=== PATIENT | male | born 1965 | race Caucasian/White ===

== ENCOUNTER 2016-08-20 22:21 | Inpatient (IN) ==
[2016-08-20] MEDS ORDERED: ONDANSETRON 4 MG/2 ML VIAL IV STA (23:29)
[2016-08-20 23:35] LABS: Basophils # 0.1 10*3/uL (0.0-0.2); Basophils % 0.6 % (0.0-0.8); Eosinophils # 0.1 10*3/uL (0.0-0.87); Hematocrit 46.1 VOL% (42.0-52.0); Hemoglobin 14.8 GM/DL (14.0-18.0); Immature Granulocytes % 0.4 %; Immature Granulocytes Absolute 0.04 #; Lymphocytes # 2.9 10*3/uL (1.4-4.0); Mean Corpuscular HGB Conc 32.1 GM/DL (32-36); Mean Corpuscular Hemoglobin 30 PG (27-34); Mean Corpuscular Volume 91.8 FL (87-102); Mean Platelet Volume 12.2 FL (9.6-12.0); Monocytes # 0.6 10*3/uL (0.11-0.8); Monocytes % 6.1 % (1.7-12.7); Neutrophils # 5.7 10*3/uL (1.4-7.4); Neutrophils % 60.9 % (38.7-73.9); Platelet Count 210 T/CUMM (130-400); Red Blood Count 5.02 MC/CUMM (3.8-5.5); Red Cell Distribution Width 15.5 % (9.3-17.3); White Blood Count 9.4 T/CUMM (4-12)
[2016-08-20] MEDS ORDERED: ONDANSETRON 4 MG/2 ML VIAL ONE (23:36)
--- NOTE | 2016-08-20 23:41 | Emergency Department Note ---
I, Edwina Zuniga, am scribing for, and in the presence of, April Mejia DO 23:39. IRoberto Debra, DO, personally performed the services described in this documentation, ascribed by Edwina Zuniga in my presence, and it is both accurate and complete [id number] . Arrival - Arrival Chief Complaint: Shortness of Breath Stated Complaint: SOB,WEAKNESS,VOMITING,LITTLE CHEST PAIN ED Nursing Triage Note: pt to triage c/o sob since . pt has n/v for last few days. pt gets sob upon walking, laying down Mode of Arrival: Ambulatory Limitations: No Limitations Source: Patient Time Seen by Provider: 08/20/16 23:24 - History of Present Illness HPI Narrative: Pt is a 51 y/o male who came to ED with c/o abdomen pain with N/V and SOB that onset last 3-4 weeks but worsened on , 2016. Pt has associated sxs of orthopnea, dyspnea with exertion, and most of what he eats comes back up. Pt takes Lasix once daily. PMHx of pacemaker (1-2 yrs ago), HTN , DM but no medications, CHF. Pt is under supervision of Dr. Naima Sutherland and Dr. Trimble. Onset (ago): day(s) Consistency: constant Severity: moderate Severity scale (1-10): 6 Quality: aching, fullness Allergies/Adverse Reactions: Allergies Allergy/AdvReac Type Severity Reaction Status Date / Time No Known Allergies Allergy Verified 08/20/16 22:32 Home Medications: Home Medications Medication Instructions Recorded Confirmed Type Furosemide 40 mg PO DAILY 12/12/14 08/20/16 History Potassium Chloride [Klor-Con M20] 20 meq PO DAILY 12/12/14 08/20/16 History Aspirin [Ecotrin] 81 mg PO DAILY 03/13/16 08/20/16 History Budesonide/Formoterol 160-4.5 2 puff INH BID 03/13/16 08/20/16 History [Symbicort 160-4.5] Bisoprolol [Zebeta] 5 mg PO DAILY 08/20/16 08/20/16 History Sacubitril/Valsartan [Entresto 24 1 tablet PO BID 02/25/17 02/25/17 History mg-26 mg Tablet] Review of System - Review of System 12 point system: reviewed and no additional remarkable complaints except as stated - Review of System Constitutional: Absent: chills, fever, weakness Head/Ears/Nose/Throat: Absent: nasal drainage, sore throat Respiratory: Present: respiratory distress Cardiovascular: Present: dyspnea on exertion, orthopnea. Absent: chest pain Gastrointestinal: Present: abdominal pain, nausea, vomiting Musculoskeletal: Absent: arm pain, back pain, leg pain, neck pain Skin: Absent: rash Neurological: Absent: headache Medical,Surgical,& Family Hx - Medical History Cardio: History of: Cardiac Dysrhythmia, CHF, Hypertension, Pacemaker (ICD), Cardiovascular Problems (ENLARGED HEART, ICD IMPLANT) Neurology: No history of: Seizures HEENT: History of: Eye Problem (GLASSES), Dental Problems (UPPER DENTURE) Endocrine: History of: Diabetes Mellitus (NIDDM) (DIET CONTROLLED) Rheumatology: History of;: Gout Respiratory: History of: Obstructive Sleep Apnea (CPAP) Other: History of: MRSA (ABDOMEN 8 YRS AGO) - Surgical History Cardiac Surgeries: Sugical HX of: Cardiac Catheterization (x 2), Internal Defibrillator Abdominal Surgeries: Surgical HX of: Abdominal Surgery, Hernia Repair (30+ YRS) Reproductive Surgeries: Patient denies;: Vasectomy - Family History Family History: Reports;: Family Cancer (SISTER LUNG), Family Diabetes (BROTHER) , Family Heart Disease (FATHER BROTHER), Family Hypertension (FATHER BROTHER) - Social History Smoking Status: Never smoker Frequency of Alcohol Use: Rarely Type of Drug Use: None Exam Vital Signs: Vital Signs Temperature 98.8 F 08/20/16 22:25 Pulse Rate 63 08/20/16 22:25 Respiratory Rate 20 08/21/16 00:40 Blood Pressure 126/94 08/20/16 22:25 O2 Sat by Pulse Oximetry 99 08/20/16 22:25 - General General appearance: alert, in no apparent distress, obese - Head Head exam: Present: atraumatic, normocephalic - Eye Eye exam: Present: PERRL, EOMI - ENT ENT exam: Present: mucous membranes moist. Absent: mucous membranes dry - Neck Neck exam: Present: full ROM. Absent: tenderness - Chest Chest inspection: Present: symmetric chest wall rise. Absent: tenderness - Respiratory Respiratory exam: Present: rales (mild on the right). Absent: normal lung sounds bilaterally, respiratory distress - Cardiovascular Cardiovascular exam: Present: regular rate, normal rhythm, normal heart sounds ( pacemaker noted) - Abdominal Exam Abdominal exam: Present: soft. Absent: distention (protrudent), tenderness - Extremities Exam Extremities exam: Present: full ROM. Absent: tenderness, pedal edema (non pitting) - Back Exam Back exam: Present: full ROM. Absent: tenderness - Neurological Exam Neurological exam: Present: alert, oriented X3, CN II-XII intact. Absent: motor sensory deficit - Psychiatric Psychiatric exam: Present: normal affect, normal mood - Skin Skin exam: Present: warm, dry Course Course Narrative: spoke with Dr Gardiner who will admit pt. Results - Labs CBC & BMP: 08/20/16 23:19 08/20/16 23:19 Lab Results: I have reviewed the patients labs Labs: Laboratory Tests 08/20/16 23:19 MPV 12.2 H Laboratory Tests 08/20/16 08/20/16 23:19 23:19 MPV 12.2 H B-Natriuretic Peptide 1600 H - EKG EKG results: interpreted by ROSALINED, not changed from: (prior ) EKG shows: sinus rhythm - Diagnostic Findings Procedure: Chest x-ray: image reviewed by me (mild failure) Disposition Clinical Impression: Congestive heart failure Case discussed with: patient Disposition: Still a Patient Condition: Stable Instructions: Heart Failure (ED), Chest Pain (ED) Time of Disposition: 01:04
[2016-08-20 23:42] LABS: INR 1.4; PT Patient Result 15.2 SECS; Partial Thromboplastin Time 27.1 SECS (0-40)
[2016-08-21 00:10] LABS: Alanine Aminotransferase 38 U/L (16-61); Albumin 3.9 G/DL (3.4-5.0); Alkaline Phosphatase 62 U/L (45-117); Aspartate Amino Transferase 37 U/L (0-37); Blood Urea Nitrogen 18 MG/DL (7-18); Calcium 9.5 MG/DL (8.5-10.1); Glucose 104 MG/DL (74-106); Potassium 4.3 MMOL/L (3.5-5.1); Sodium 143 MMOL/L (136-145); Total Protein 7.1 G/DL (6.4-8.3)
[2016-08-21 00:11] LABS: Troponin I Only 0.025 NG/ML (0.00-0.045)
[2016-08-21] MEDS ORDERED: FUROSEMIDE 40 MG/4 ML VIAL IV STA (00:57)
[2016-08-21] MEDS ORDERED: MAGNESIUM SULF RIDER 4 GM in PREMIX 1 EACH IV PRN (01:05)
[2016-08-21] MEDS ORDERED: MORPHINE 2 MG/1 ML SYRINGE IV PRN (01:05)
[2016-08-21] MEDS ORDERED: MAGNESIUM SULF RIDER 2 GM in PREMIX 1 EACH IV PRN (01:05)
[2016-08-21] MEDS ORDERED: ONDANSETRON 4 MG/2 ML VIAL IV PRN (01:05)
[2016-08-21] MEDS ORDERED: ZALEPLON 5 MG CAPSULE PO PRN (01:05)
[2016-08-21] MEDS ORDERED: FUROSEMIDE 100 MG/10 ML VIAL ONE (01:09)
[2016-08-21 04:59] LABS: Basophils # 0.1 10*3/uL (0.0-0.2); Basophils % 0.7 % (0.0-0.8); Eosinophils % 0.4 % (0.00-10.9); Hematocrit 41.9 VOL% (42.0-52.0); Hemoglobin 13.8 GM/DL (14.0-18.0); Immature Granulocytes % 0.3 %; Immature Granulocytes Absolute 0.02 #; Lymphocytes # 2.4 10*3/uL (1.4-4.0); Lymphocytes % 31.6 % (21.2-54.2); Mean Corpuscular HGB Conc 32.9 GM/DL (32-36); Mean Corpuscular Hemoglobin 29 PG (27-34); Mean Corpuscular Volume 88.8 FL (87-102); Mean Platelet Volume 11.9 FL (9.6-12.0); Monocytes # 0.6 10*3/uL (0.11-0.8); Monocytes % 7.3 % (1.7-12.7); Neutrophils # 4.5 10*3/uL (1.4-7.4); Neutrophils % 59.7 % (38.7-73.9); Platelet Count 196 T/CUMM (130-400); Red Blood Count 4.72 MC/CUMM (3.8-5.5); Red Cell Distribution Width 15.2 % (9.3-17.3); White Blood Count 7.6 T/CUMM (4-12)
[2016-08-21 05:42] LABS: Troponin I Only 0.023 NG/ML (0.00-0.045)
[2016-08-21 05:59] LABS: Calcium 8.7 MG/DL (8.5-10.1); Magnesium 1.8 MG/DL (1.8-2.4); Osmolality,Calculated 288.7 MOS/KG (273-304); Risk Ratio 5.2; Thyroid Stimulating Hormone 0.384 uIU/ml (0.358-3.74); VLDL CHOLESTEROL 17.2 MG/DL
[2016-08-21] MEDS ORDERED: DEXTROSE 50% 25 GM/50 ML VIAL IV PRN (07:26)
[2016-08-21] MEDS ORDERED: GLUCAGON 1 MG VIAL IM PRN (07:26)
--- NOTE | 2016-08-21 07:54 | EKG Report ---
Stationary ECG Study [facility] Test Date: 08/21/2016 7:52:50 AM Pat Name: ALF PALOMINO Department: Room: 281 Gender: M Pneumatic Tester: : 1965 Requested by: April Mejia Order Number: [id number] Reading MD: CARLOS OSBORN Intervals [place] Rate: 52 P: 999 MO: 0 QRS: -52 QRSD: 116 T: 87 QT: 453 QTc: 434 Interpretive Statements SINUS RHYTHM WITH FIRST DEGREE AV BLOCK LOW QRS VOLTAGE IN PRECORDIAL LEADS LEFT ANTERIOR FASCICULAR BLOCK INFERIOR MYOCARDIAL INFARCTION, PROBABLY OLD MULTIFOCAL PVCs with fusion Electronically Signed On 08-21-16 21:57:00 COLLABORATIVE TEACHER by CARLOS OSBORN [email or web address]
[2016-08-21 08:01] LABS: Troponin I Only 0.028 NG/ML (0.00-0.045)
--- NOTE | 2016-08-21 08:30 | XRay Report ---
Referring Physician: April Mejia DO Exam: XR chest 1V portable Date: August 20, 2016 at 11:19 PM Reason: Shortness of breath Comparison: Chest 2 views July 29, 2016 Findings: The cardiac silhouette is again enlarged, and a cardiac pacing device is in place. No focal consolidation, pneumothorax or pleural effusion is identified. No acute osseous process is seen. Impression: 1. Cardiomegaly. 2. No acute pulmonary process is identified. PROCEDURE INTERPRETED AT [facility] DEPARTMENT OF RADIOLOGY Final Report Signed by: Dr. Ceci Alexander
--- NOTE | 2016-08-21 10:43 | Cardiology History & Physical ---
Assessment and Plan (1) NICM (nonischemic cardiomyopathy) Status: Acute Assessment and plan: 51-year-old male, nonischemic cardiomyopathy, CHF class 3, diet-controlled diabetes, sleep apnea, morbid obesity, frequent PVCs, h/o VT. Presenting with symptoms suggestive of worsening gastroparesis. His heart failure symptoms are also slowly worsening. He is adequately perfused at this time. -Continue IV Lasix 80 mg twice a day. Fair UOP so far. If difficult diurese, may support with dobutamine. We will need to watch closely for arrhythmia. -He is not a candidate for CATTLE AND WHEAT FARMER. Although has frequent PVCs, these are polymorphic and would not be a good candidate substrate for ablation. There is no significant bradycardia. He will need evaluation for advanced CHF treatment options. -GI consult. His primary concern is related to his nausea vomiting, suspect gastroparesis. -Sleep evaluation. He has TONO. He may need titration or may be better served by the BiPAP, given his severe cardiac dysfunction. -Continue Entresto, Zebeta. -Check HBA1c. His BS is normal off any DM agents -Keep on telemetry Current Visit: Yes (2) Gastroparesis Status: Acute Current Visit: Yes (3) T2DM (type 2 diabetes mellitus) Status: Acute Current Visit: Yes (4) Congestive heart failure Status: Acute Current Visit: Yes History of Present Illness Chief complaint: BRYAN, abd pain History of present illness: Mr. Richard is a 51 year old male, followed by dr. Trimble. He has a history of nonischemic cardiomyopathy, ejection fraction declining, now 15%, despite being on Entresto and BB. He has a single-chamber ICD for primary prevention. Interrogation from office shows frequent PVCs, NSVTs, and prior VTs, for which treatment details are not availabl;e in the EMR. Less than 1% RVP. He noticed slowly worsening heart failure symptoms, currently, he is around class III. He also has diabetes mellitus, diet-controlled. History of suspected gastroparesis, with GI workup planned. Recently, he noticed that his symptoms became worse, has N/V. Denies any diarrhea or constipation palpitation chest pain. He gets short of breath with minimal activity but was not having severe orthopne so far. EKG shows sinus rhythm, with frequent multifocal PVCs. The QRS is 120 ms, IVCD. BNP was elevated, LFTs are within normal range. He got 80 mg iv Lasix in the ER, with fair urine output so far. His is currently feeling around his baseline. Home Medications Medication Instructions Recorded Confirmed Type Furosemide 40 mg PO DAILY 12/12/14 08/21/16 History Potassium Chloride [Klor-Con M20] 20 meq PO DAILY 12/12/14 08/21/16 History Aspirin [Ecotrin] 81 mg PO DAILY 03/13/16 08/21/16 History Budesonide/Formoterol 160-4.5 2 puff INH BID 03/13/16 08/21/16 History [Symbicort 160-4.5] Bisoprolol [Zebeta] 5 mg PO DAILY 08/20/16 08/21/16 History Sacubitril/Valsartan [Entresto 24 1 tablet PO BID 08/20/16 08/21/16 History mg-26 mg Tablet] Allergies Allergy/AdvReac Type Severity Reaction Status Date / Time No Known Allergies Allergy Verified 08/20/16 22:32 12 point system: reviewed and no additional remarkable complaints except as stated Medical,Surgical,& Family Hx - Medical History Cardio: History of: Cardiac Dysrhythmia, CHF, Hypertension, Pacemaker (ICD), Cardiovascular Problems (ENLARGED HEART, ICD IMPLANT) Neurology: No history of: Seizures HEENT: History of: Eye Problem (GLASSES), Dental Problems (UPPER DENTURE) Endocrine: History of: Diabetes Mellitus (NIDDM) (DIET CONTROLLED) Rheumatology: History of;: Gout Respiratory: History of: Obstructive Sleep Apnea (CPAP) Other: History of: MRSA (ABDOMEN 8 YRS AGO) - Surgical History Cardiac Surgeries: Sugical HX of: Cardiac Catheterization (x 2), Internal Defibrillator Abdominal Surgeries: Surgical HX of: Abdominal Surgery, Hernia Repair (30+ YRS) Reproductive Surgeries: Patient denies;: Vasectomy - Family History Family History: Reports;: Family Cancer (SISTER LUNG), Family Diabetes (BROTHER) , Family Heart Disease (FATHER BROTHER), Family Hypertension (FATHER BROTHER) - Social History Smoking Status: Never smoker Frequency of Alcohol Use: Rarely Type of Drug Use: None Cardiology Physical Exam - Constitutional Vitals: Vital Signs Temp Pulse Resp BP Pulse Ox 96.7 F L 64 18 100/63 98 08/21/16 08:00 08/21/16 08:00 08/21/16 08:00 08/21/16 08:00 08/21/16 08:00 Intake and Output 08/20/16 08/21/16 08/21/16 23:59 07:59 15:59 Intake Total 120 / 120 Output Total 600 / 600 Balance -600 / -600 120 / 120 Intake: Oral 120 / 120 Output: Urine 600 / 600 Other: Weight 128.849 kg Patient Weight 08/21/16 23:59 Weight 128.849 kg General appearance: morbidly obese - Head Head exam: Present: normal inspection - Eye Eye exam: Absent: conjunctival injection Pupils: Absent: dilated - ENT ENT exam: Present: normal exam - Neck Neck exam: Present: normal inspection - Respiratory Respiratory exam: Present: clear to auscultation bilaterally - Cardiovascular Cardiovascular exam: Present: regular rate and rhythm - GI/Abdominal GI/Abdominal exam: Present: normal bowel sounds. Absent: distended, firm - Extremities Exam Extremities exam: Present: normal inspection, normal capillary refill, edema (1+ ) - Back Exam Back exam: Present: normal inspection - Neurological Exam Neurological exam: Present: alert, oriented X3 - Psychiatric Psychiatric exam: Present: normal affect - Skin Skin exam: Present: normal color, warm. Absent: cyanosis Result/EKG - Labs CBC & BMP: 08/21/16 04:49 08/21/16 04:49 Lab Results: I have reviewed the past 24 hour labs Labs: Laboratory Results - last 24 hr 08/21/16 08/21/16 08/21/16 04:49 04:49 04:49 WBC 7.6 RBC 4.72 Hgb 13.8 L Hct 41.9 L MCV 88.8 MCH 29 MCHC 32.9 RDW 15.2 Plt Count 196 MPV 11.9 Neut % (Auto) 59.7 Lymph % (Auto) 31.6 [place] % (Auto) 7.3 Eos % (Auto) 0.4 Baso % (Auto) 0.7 Neut # (Auto) 4.5 Lymph # (Auto) 2.4 [place] # (Auto) 0.6 Eos # (Auto) 0.0 Baso # (Auto) 0.1 Immature Gran % 0.3 Nucleated RBC % 0.0 Immature Gran # 0.02 Nucleated RBCs # 0.00 Sodium 145 Potassium 4.0 Chloride 108 H Carbon Dioxide 22 Anion Gap 19.0 H BUN 16 Creatinine 1.00 GFR Calculation 122 BUN/Creatinine Ratio 16.00 Glucose 106 POC Glucose Calculated Osmolality 288.7 Calcium 8.7 Magnesium 1.8 Total Creatine Kinase 113 CK-MB (CK-2) < 1.0 Troponin I 0.023 Triglycerides 86 Cholesterol 156 LDL Cholesterol 119.0 VLDL Cholesterol 17.2 HDL Cholesterol 30 L Heart Disease Risk Ratio 5.20 TSH 3rd Generation 0.384 08/21/16 08/21/16 07:04 07:59 WBC RBC Hgb Hct MCV MCH MCHC RDW Plt Count MPV Neut % (Auto) Lymph % (Auto) [place] % (Auto) Eos % (Auto) Baso % (Auto) Neut # (Auto) Lymph # (Auto) [place] # (Auto) Eos # (Auto) Baso # (Auto) Immature Gran % Nucleated RBC % Immature Gran # Nucleated RBCs # Sodium Potassium Chloride Carbon Dioxide Anion Gap BUN Creatinine GFR Calculation BUN/Creatinine Ratio Glucose POC Glucose 123 H Calculated Osmolality Calcium Magnesium Total Creatine Kinase 95 CK-MB (CK-2) < 1.0 Troponin I 0.028 Triglycerides Cholesterol LDL Cholesterol VLDL Cholesterol HDL Cholesterol Heart Disease Risk Ratio TSH 3rd Generation - EKG EKG results: interpreted by me
[2016-08-21] MEDS: POTASSIUM CHLORIDE 20 MEQ TABLET PO SCH (11:49)
[2016-08-21] MEDS: ASPIRIN EC 81 MG TABLET PO SCH (11:49)
[2016-08-21] MEDS: SACUBITRIL/VALSARTAN 49-51 MG TABLET PO SCH ×2 (11:49→21:06)
[2016-08-21] MEDS: BUDESONIDE/FORMOTEROL 160-4.5 INHALER 6 GM INH SCH ×2 (11:50→21:09)
[2016-08-21] MEDS: BISOPROLOL 5 MG TABLET PO SCH (11:50)
[2016-08-21] MEDS: FUROSEMIDE 40 MG/4 ML VIAL IV SCH (16:20)
--- NOTE | 2016-08-21 17:25 | EKG Report ---
Stationary ECG Study [facility] Test Date: 08/20/2016 10:32:16 PM Pat Name: ALF PALOMINO Department: Room: 281 Gender: M Morphologist: : 1965 Requested by: April Mejia Order Number: [id number] Reading MD: CARLOS OSBORN Intervals [place] Rate: 72 P: 48 MA: 240 QRS: -60 QRSD: 108 T: 92 QT: 435 QTc: 459 Interpretive Statements SINUS RHYTHM WITH FIRST DEGREE AV BLOCK WITH FREQUENT VENTRICULAR PREMATURE COMPLEXES Right bundle branch block Left anterior fascicular block INFERIOR INFARCT, PROBABLY OLD Electronically Signed On 08-21-16 21:50:33 MANUFACTURING ENGINEERING PROFESSOR by CARLOS OSBORN [id number]
[2016-08-22 06:12] LABS: Basophils # 0.1 10*3/uL (0.0-0.2); Basophils % 0.8 % (0.0-0.8); Eosinophils # 0.1 10*3/uL (0.0-0.87); Eosinophils % 1.2 % (0.00-10.9); Hematocrit 44.7 VOL% (42.0-52.0); Hemoglobin 14.4 GM/DL (14.0-18.0); Immature Granulocytes % 0.3 %; Immature Granulocytes Absolute 0.03 #; Lymphocytes % 33.6 % (21.2-54.2); Mean Corpuscular HGB Conc 32.2 GM/DL (32-36); Mean Corpuscular Hemoglobin 29 PG (27-34); Mean Corpuscular Volume 90.7 FL (87-102); Mean Platelet Volume 13.1 FL (9.6-12.0); Monocytes # 0.9 10*3/uL (0.11-0.8); Monocytes % 9.6 % (1.7-12.7); NRBC # 0.03 10*3/uL; Neutrophils # 4.8 10*3/uL (1.4-7.4); Neutrophils % 54.5 % (38.7-73.9); Platelet Count 116 T/CUMM (130-400); Red Blood Count 4.93 MC/CUMM (3.8-5.5); Red Cell Distribution Width 15.5 % (9.3-17.3); White Blood Count 8.9 T/CUMM (4-12)
[2016-08-22 06:49] LABS: Calcium 9.1 MG/DL (8.5-10.1); Osmolality,Calculated 290.7 MOS/KG (273-304); Potassium 4.2 MMOL/L (3.5-5.1)
[2016-08-22] MEDS: BUDESONIDE/FORMOTEROL 160-4.5 INHALER 6 GM INH SCH ×2 (09:18→20:55)
[2016-08-22] MEDS: ASPIRIN EC 81 MG TABLET PO SCH (09:19)
[2016-08-22] MEDS: POTASSIUM CHLORIDE 20 MEQ TABLET PO SCH (09:19)
[2016-08-22] MEDS: SACUBITRIL/VALSARTAN 49-51 MG TABLET PO SCH ×2 (09:20→20:54)
[2016-08-22] MEDS: FUROSEMIDE 40 MG/4 ML VIAL IV SCH ×2 (09:20→16:43)
[2016-08-22] MEDS: BISOPROLOL 5 MG TABLET PO SCH (09:20)
--- NOTE | 2016-08-22 10:14 | Gastrointestinal Consult Note ---
<Harini Joyce - Last Filed: 08/22/16 10:06> Assessment and Plan (1) Nausea and vomiting Status: Acute Assessment and plan: 08/22-2-3 week history of nausea, vomiting with eating. No coffee ground/ hematemesis. Mid abd pain with eating, resolved with vomiting. Diet controlled DM. No prior endoscopy. Plan and addendum to follow by Dr Madrid. Current Visit: Yes History of Present Illness Chief complaint: Nausea and vomiting History of present illness: Mr. Richard is a 51 year old male who presented to the hospital with complaints of abdominal pain, nausea and vomiting. Pt also presented with some SOB. He has a history of nonischemic cardiomyopathy with EF of 15% on Entresto and betablockers. He has an implanted ICD as well. He states he has had some new onset chest pressure, discomfort as well. Pt states that the last 2-3 weeks he has had nausea and vomiting almost every day several times a day every time he eats. He states it started suddenly and has been unable to keep any solids down since this time. When he eats, he has onset of nausea and starts vomiting with some onset of mid abdominal cramping and pain. Pt states that he is able to keep down small amounts of liquids but no solids. He is what he states is borderline diabetic and his blood sugars are [place] Vianney Sutherland [place] [facility] He is on no medications for this and states they average 100-120 fasting. He has no prior history of PUD, GERD, or GI problems in the past. No endoscopy in the past. He states that he has no dysphagia. No weight loss, fever or chills. Denies being around others who have been ill. States his bowels have changed in the respect of he is having less stool with each bowel movement. Denies any melena or hematochezia. Denies NSAID use. He had a recent outpatient gallbladder US on 07/29 that showed possible fatty liver infiltration but no other abnormality. CBD 2.3cm. Home Medications Medication Instructions Recorded Confirmed Type Furosemide 40 mg PO DAILY 12/12/14 08/21/16 History Potassium Chloride [Klor-Con M20] 20 meq PO DAILY 12/12/14 08/21/16 History Aspirin [Ecotrin] 81 mg PO DAILY 03/13/16 08/21/16 History Budesonide/Formoterol 160-4.5 2 puff INH BID 03/13/16 08/21/16 History [Symbicort 160-4.5] Bisoprolol [Zebeta] 5 mg PO DAILY 08/20/16 08/21/16 History Sacubitril/Valsartan [Entresto 24 1 tablet PO BID 08/20/16 08/21/16 History mg-26 mg Tablet] Allergies Allergy/AdvReac Type Severity Reaction Status Date / Time No Known Allergies Allergy Verified 08/20/16 22:32 Medical,Surgical,& Family Hx - Medical History Cardio: History of: Cardiac Dysrhythmia, CHF, Hypertension, Pacemaker (ICD), Cardiovascular Problems (ENLARGED HEART, ICD IMPLANT) Neurology: No history of: Seizures HEENT: History of: Eye Problem (GLASSES), Dental Problems (UPPER DENTURE) Endocrine: History of: Diabetes Mellitus (NIDDM) (DIET CONTROLLED) Rheumatology: History of;: Gout Respiratory: History of: Obstructive Sleep Apnea (CPAP) Other: History of: MRSA (ABDOMEN 8 YRS AGO) - Surgical History Cardiac Surgeries: Sugical HX of: Cardiac Catheterization (x 2), Internal Defibrillator Abdominal Surgeries: Surgical HX of: Abdominal Surgery, Hernia Repair (30+ YRS) Reproductive Surgeries: Patient denies;: Vasectomy - Family History Family History: Reports;: Family Cancer (SISTER LUNG), Family Diabetes (BROTHER) , Family Heart Disease (FATHER BROTHER), Family Hypertension (FATHER BROTHER) - Social History Smoking Status: Never smoker Frequency of Alcohol Use: Rarely Type of Drug Use: None 12 point system: reviewed and no additional remarkable complaints except as stated - Constitutional Constitutional: Present: as per HPI - EENT Eyes: Present: as per HPI Ears: Present: as per HPI Nose, mouth and throat: Present: as per HPI - Cardiovascular Cardiovascular: Present: as per HPI, chest pain at rest - Respiratory Respiratory: Present: as per HPI - Gastrointestinal Gastrointestinal: Present: as per HPI, abdominal pain, nausea, vomiting - Genitourinary Genitourinary: Present: as per HPI - Musculoskeletal Musculoskeletal: Present: as per HPI - Neurological Neurological: Present: as per HPI - Psychiatric Psychiatric: Present: as per HPI - Endocrine Endocrine: Present: as per HPI - Hematologic/Lymphatic Hematologic/Lymphatic: Present: as per HPI Exam - Constitutional Vitals: Period Temp Pulse Resp BP Sys/Moran Pulse Ox Last 24 Hr 97.3 F-98.5 F 55-65 18-20 95-120/58-77 20-97 General appearance: normal weight, no acute distress - Head Head exam: Present: normal inspection, normocephalic - Eye Eye exam: Present: other (lids and conjunctiva unremarakble). Absent: scleral icterus - ENT ENT exam: Present: normal exam, normal oropharynx - Neck Neck exam: Present: normal inspection - Respiratory Respiratory exam: Present: clear to auscultation bilaterally. Absent: rales, rhonchi, wheezes - Cardiovascular Cardiovascular exam: Present: regular rate and rhythm. Absent: diastolic murmur , JVD, systolic murmur - GI/Abdominal GI/Abdominal exam: Present: normal bowel sounds, soft. Absent: ascites, distended, mass, organomegaly, tenderness - Extremities Exam Extremities exam: Present: normal inspection, full ROM - Back Exam Back exam: Present: normal inspection - Neurological Exam Neurological exam: Present: alert, oriented X3 - Psychiatric Psychiatric exam: Present: normal affect, normal mood - Skin Skin exam: Present: normal color, warm, dry Results - Labs CBC & BMP: 08/22/16 05:24 08/22/16 05:24 Lab Results: I have reviewed the past 24 hour labs Specialty Discharge - Follow Up or Referrals <Ryan Madrid - Last Filed: 08/22/16 17:18> History of Present Illness History of present illness: Mr. Richard is a 51 year old male Exam - Constitutional Vitals: Period Temp Pulse Resp BP Sys/Moran Pulse Ox Last 24 Hr 96.4 F-98.5 F 54-64 18-20 95-131/58-70 20-97 Results - Labs CBC & BMP: 08/22/16 05:24 08/22/16 05:24
--- NOTE | 2016-08-22 12:20 | EKG Report ---
Stationary ECG Study [facility] Test Date: 08/22/2016 12:19:53 PM Pat Name: ALF PALOMINO Department: Room: 281 Gender: M Wares Sorter: ANA : 1965 Requested by: Desmond Trimble Order Number: [id number] Reading MD: DESMOND TRIMBLE Intervals [place] Rate: 60 P: 71 OR: 227 QRS: -68 QRSD: 113 T: 89 QT: 462 QTc: 464 Interpretive Statements SINUS RHYTHM WITH PROLONGED OR INTERVAL WITH FREQUENT VENTRICULAR PREMATURE COMPLEXES LOW QRS VOLTAGE IN PRECORDIAL LEADS INFERIOR MYOCARDIAL INFARCTION, PROBABLY OLD ANTEROSEPTAL MYOCARDIAL INFARCTION, OF INDETERMINATE AGE Electronically Signed On 08-22-16 23:11:24 BLOOMING MILL SUPERVISOR by DESMOND TRIMBLE [email or web address]
--- NOTE | 2016-08-22 13:06 | Sleep Medicine Consult ---
Assessment and Plan (1) Obstructive sleep apnea Status: Acute Assessment and plan: Given his compliance data, I would recommend continuing with present CPAP therapy. We will schedule him for follow-up in the sleep clinic after discharge. He continues to have persistent problems with fatigue despite control of his congestive heart failure, we may look at re-study in him. At this point though with such good results but download, would not make any changes. Thank you for this consult. Current Visit: Yes (2) T2DM (type 2 diabetes mellitus) Status: Chronic Assessment and plan: The prevalence rate for obstructive sleep apnea in patients with type 2 diabetes can be as high as 86%. Those patients with moderate to severe obstructive sleep apnea are at a greater risk for diabetic nephropathy and neuropathy. Compliance with CPAP therapy for these patients can lead to improvement in glycemic control and improvement in insulin sensitivity. Current Visit: Yes (3) Congestive heart failure Status: Chronic Assessment and plan: Controlling underlying obstructive sleep apnea can help with management of congestive heart failure. CPAP therapy has been shown in some studies to improve ejection fraction in those with systolic dysfunction and TONO. Current Visit: Yes History of Present Illness Chief complaint: Obstructive sleep apnea History of present illness: Mr. Richard is a 51 year old male previously diagnosed with moderate obstructive sleep apnea in 2014 with a diagnostic AHI of 25.9. He was titrated with CPAP and originally was placed on 18 cm but now is almost 16 cm. He has 100% usage right of his CPAP and has a compliance rate of over 93% for over 4 hours. His average AHI is 1.8 and he has no significant leak with his mask. He appears to be doing well on his current prescription. He is having some shortness of breath related to CHF and some fatigue that he thinks may be more related to an exacerbation obvious CHF rather than his sleep apnea. He is not being told that he snores during his sleep. He does have a normal [place] sleepiness score of 6. Home Medications Medication Instructions Recorded Confirmed Type Furosemide 40 mg PO DAILY 12/12/14 08/21/16 History Potassium Chloride [Klor-Con M20] 20 meq PO DAILY 12/12/14 08/21/16 History Aspirin [Ecotrin] 81 mg PO DAILY 03/13/16 08/21/16 History Budesonide/Formoterol 160-4.5 2 puff INH BID 03/13/16 08/21/16 History [Symbicort 160-4.5] Bisoprolol [Zebeta] 5 mg PO DAILY 08/20/16 08/21/16 History Sacubitril/Valsartan [Entresto 24 1 tablet PO BID 08/20/16 08/21/16 History mg-26 mg Tablet] Allergies Allergy/AdvReac Type Severity Reaction Status Date / Time No Known Allergies Allergy Verified 08/20/16 22:32 Review of systems: Review of systems unremarkable otherwise as stated in HPI. Exam (Pulmonay) H&P - Constitutional Vitals: Period Temp Pulse Resp BP Sys/Moran Pulse Ox Last 24 Hr 97.3 F-98.5 F 54-62 18-20 95-118/58-77 20-97 Exam: Patient is alert and responsive in no acute distress. Pupils equal round reactive to light and accommodation. Extraocular movements intact. Oropharynx with a class III Mallampati exam. Neck supple without adenopathy or thyromegaly. No supraclavicular adenopathy is noted. Chest with symmetrical breath sounds without focal wheeze, rhonchi, or rales. Cardiac exam reveals a regular rhythm without murmur or gallop. Abdomen soft nontender without palpable hepatosplenomegaly or mass. Extremities with 1+ pitting edema. Neurologically, he is grossly intact. Medical,Surgical,& Family Hx - Medical History Cardio: History of: Cardiac Dysrhythmia, CHF, Hypertension, Pacemaker (ICD), Cardiovascular Problems (ENLARGED HEART, ICD IMPLANT) Neurology: No history of: Seizures HEENT: History of: Eye Problem (GLASSES), Dental Problems (UPPER DENTURE) Endocrine: History of: Diabetes Mellitus (NIDDM) (DIET CONTROLLED) Rheumatology: History of;: Gout Respiratory: History of: Obstructive Sleep Apnea (CPAP) Other: History of: MRSA (ABDOMEN 8 YRS AGO) - Surgical History Cardiac Surgeries: Sugical HX of: Cardiac Catheterization (x 2), Internal Defibrillator Abdominal Surgeries: Surgical HX of: Abdominal Surgery, Hernia Repair (30+ YRS) Reproductive Surgeries: Patient denies;: Vasectomy - Family History Family History: Reports;: Family Cancer (SISTER LUNG), Family Diabetes (BROTHER) , Family Heart Disease (FATHER BROTHER), Family Hypertension (FATHER BROTHER) - Social History Smoking Status: Never smoker Frequency of Alcohol Use: Rarely Type of Drug Use: None Results - Labs CBC & BMP: 08/22/16 05:24 08/22/16 05:24 Lab Results: I have reviewed the past 24 hour labs Specialty Discharge - Follow Up or Referrals
--- NOTE | 2016-08-22 14:00 | Cardiology Progress Note ---
I, Viktoriya Jackson RN, am scribing for, and in the presence of, Desmond Trimble MD 14:00. Assessment and Plan (1) NICM (nonischemic cardiomyopathy) Status: Chronic Assessment and plan: Ejection fraction of 15%. Patient has good heart failure medication regimen with Entresto and beta-genoveva. Will initiate dobutamine drip at this time. I have discussed in detail the particulars of this case and I have examined the patient and reviewed the patient's chart both current and old. I was directly involved in this patient's evaluation and management I completely agree with Viktoriya Jackson regarding this patient's evaluation and treatment plan Current Visit: Yes (2) Congestive heart failure Status: Chronic Assessment and plan: BNP is noted to be 1600. He is being diuresed with Lasix 80 mg IV twice daily. Will start dobutamine drip at 7.5. Current Visit: Yes (3) Gastroparesis Status: Acute Assessment and plan: This is currently being worked up by GI. Current Visit: Yes (4) T2DM (type 2 diabetes mellitus) Status: Chronic Assessment and plan: Hemoglobin A1c is noted to be 6.6. Continue current plan of care. Current Visit: Yes Cardiology - PN: Subj Interval history: Patient was seen on telemetry. Upon entering the room, patient was ambulating around the room and guzmán in no acute distress. He is currently not requiring any oxygen. He continues to complain of shortness of breath. He is being diuresed with 80 mg of Lasix IV twice daily. However, he is not having good output with this. His weight is unchanged today. He also continues to complain of nonradiating chest discomfort. He reports that it feels like something is sitting on his chest. He tells me that this is not worsened with activity. His troponin has been negative 3 checks. BNP on admission was 1600. EKG has been ordered to review today. He is currently in sinus rhythm with heart rates in the 60s with multiple PVCs noted. His blood pressure was noted to be 95/58, and he reports that the nurse held all of his blood pressure medications. Exam (Progress Note) - Constitutional Vitals: Period Temp Pulse Resp BP Sys/Moran Pulse Ox Last 24 Hr 97.3 F-98.5 F 55-65 18-20 95-120/58-77 20-97 General appearance: no acute distress, over weight - Head Head exam: Present: normal inspection, normocephalic, atraumatic - Respiratory Respiratory exam: Present: rales (Bilateral lower lobes). Absent: accessory muscle use, chest wall tenderness, rhonchi, stridor, wheezes - Cardiovascular Cardiovascular exam: Present: regular rate and rhythm. Absent: gallop, rubs, tachycardia - GI/Abdominal GI/Abdominal exam: Present: tenderness, soft. Absent: distended, firm, mass - Extremities Exam Extremities exam: Present: normal capillary refill, edema. Absent: calf tenderness - Neurological Exam Neurological exam: Present: alert, oriented X3, normal gait - Psychiatric Psychiatric exam: Present: normal affect, normal mood. Absent: agitated, anxious, depressed - Skin Skin exam: Present: normal color, warm, dry Result/EKG - Labs CBC & BMP: 08/22/16 05:24 08/22/16 05:24 Lab Results: I have reviewed the past 24 hour labs Labs: Laboratory Results - last 24 hr 08/21/16 08/22/16 08/22/16 11:13 05:24 05:24 WBC 8.9 RBC 4.93 Hgb 14.4 Hct 44.7 MCV 90.7 MCH 29 MCHC 32.2 RDW 15.5 Plt Count 116 L D MPV 13.1 H Neut % (Auto) 54.5 Lymph % (Auto) 33.6 [place] % (Auto) 9.6 Eos % (Auto) 1.2 Baso % (Auto) 0.8 Neut # (Auto) 4.8 Lymph # (Auto) 3.0 [place] # (Auto) 0.9 H Eos # (Auto) 0.1 Baso # (Auto) 0.1 Immature Gran % 0.3 Nucleated RBC % 0.3 Immature Gran # 0.03 Nucleated RBCs # 0.03 Sodium 145 Potassium 4.2 Chloride 106 Carbon Dioxide 22 Anion Gap 21.2 H BUN 20 H Creatinine 1.10 GFR Calculation 109 BUN/Creatinine Ratio 18.00 Glucose 98 POC Glucose 125 H Hemoglobin A1c Calculated Osmolality 290.7 Calcium 9.1 Magnesium 2.0 08/22/16 08/22/16 05:25 07:20 WBC RBC Hgb Hct MCV MCH MCHC RDW Plt Count MPV Neut % (Auto) Lymph % (Auto) [place] % (Auto) Eos % (Auto) Baso % (Auto) Neut # (Auto) Lymph # (Auto) [place] # (Auto) Eos # (Auto) Baso # (Auto) Immature Gran % Nucleated RBC % Immature Gran # Nucleated RBCs # Sodium Potassium Chloride Carbon Dioxide Anion Gap BUN Creatinine GFR Calculation BUN/Creatinine Ratio Glucose POC Glucose 117 H Hemoglobin A1c 6.6 H Calculated Osmolality Calcium Magnesium Specialty Discharge - Follow Up or Referrals Atilio Finn Wesley, MD, personally performed the services described in this documentation, ascribed by Viktoriya Jackson RN in my presence, and it is both accurate and complete [id number] .
[2016-08-22] MEDS: DOBUTamine 500 MG/250 ML PREMIX IV SCH ×3 (14:28→23:27)
[2016-08-23 05:55] LABS: Basophils # 0.1 10*3/uL (0.0-0.2); Basophils % 0.8 % (0.0-0.8); Eosinophils # 0.1 10*3/uL (0.0-0.87); Eosinophils % 1.4 % (0.00-10.9); Hematocrit 38.8 VOL% (42.0-52.0); Hemoglobin 12.8 GM/DL (14.0-18.0); Immature Granulocytes % 0.2 %; Immature Granulocytes Absolute 0.01 #; Lymphocytes % 31.6 % (21.2-54.2); Mean Corpuscular Hemoglobin 30 PG (27-34); Mean Corpuscular Volume 89.6 FL (87-102); Mean Platelet Volume 11.9 FL (9.6-12.0); Monocytes # 0.6 10*3/uL (0.11-0.8); Neutrophils # 3.5 10*3/uL (1.4-7.4); Platelet Count 170 T/CUMM (130-400); Red Blood Count 4.33 MC/CUMM (3.8-5.5); Red Cell Distribution Width 15.1 % (9.3-17.3); White Blood Count 6.2 T/CUMM (4-12)
[2016-08-23] MEDS: DOBUTamine 500 MG/250 ML PREMIX IV SCH ×5 (06:14→23:52)
[2016-08-23 06:38] LABS: Calcium 8.7 MG/DL (8.5-10.1); Magnesium 1.9 MG/DL (1.8-2.4); Osmolality,Calculated 289.7 MOS/KG (273-304); Potassium 3.3 MMOL/L (3.5-5.1)
[2016-08-23] MEDS ORDERED: PROPOFOL 200 MG/20 ML VIAL IV ONE (10:50)
[2016-08-23] MEDS ORDERED: LIDOCAINE 2% 5 ML VIAL ONE (10:50)
--- NOTE | 2016-08-23 10:57 | Operative Note ---
Date of procedure: 08/23/16 Pre-op diagnosis: nausea and epigastric pain Procedure: EGD 51-year-old gentleman with significant cardiomyopathy complaining of frequent nausea and abdominal pain following eating now for upper endoscopy to further evaluate. Informed consent was obtained the patient He was sedated with Mac anesthesia per anesthesia protocol. Patient placed in left lateral decubitus position the Olympus flexible video upper endoscope was inserted into the oral cavity under direct vision the esophagus was intubated. Findings: Esophagus-normal proximal mid esophageal mucosa distal esophagus with moderate hiatal hernia significant erosive esophagitis is seen. Stomach-normal insufflation mild antral gastritis otherwise normal to direct retroflex views of the body, fundus and cardia stomach. Pylorus-normal Duodenum-bulbar duodenitis no ulcers seen to the third portion duodenum. The procedure terminated patient our procedure well his discharge recovery in good condition. Postop diagnosis: #1 gastroesophageal reflux disease with erosive esophagitis-continue PPI treatment and antireflux precautions #2 gastritis continue PPI avoid nonsteroidals #3 duodenitis continue PPI avoid nonsteroidals. Anesthesia: MAC Surgeon / Physician: Ryan Madrid Estimated blood loss: none Specimens: none sent Condition: stable Disposition: post procedure unit Results - Labs CBC & BMP: 08/23/16 05:49 08/23/16 05:49 Discharge Plan - Discharge Medications No Action Potassium Chloride [Klor-Con M20] 20 meq PO DAILY Furosemide 40 mg PO DAILY Budesonide/Formoterol 160-4.5 [Symbicort 160-4.5] 2 puff INH BID Aspirin [Ecotrin] 81 mg PO DAILY Sacubitril/Valsartan [Entresto 24 mg-26 mg Tablet] 1 tablet PO BID Bisoprolol [Zebeta] 5 mg PO DAILY - Follow Up or Referral - Forms/Instructions Instructions: Heart Failure (ED), Chest Pain (ED)
--- NOTE | 2016-08-23 11:06 | Anesthesia ---
Anesthesia Post OP - Post Ansesthetic Evaluation Patient seen in post op: Yes Resp: within normal limits CV: within normal limits Mental: within normal limits Temp: within normal limits [id number]: within normal limits Nausea and Vomiting: within normal limits Pain: within normal limits
[2016-08-23] MEDS: BUDESONIDE/FORMOTEROL 160-4.5 INHALER 6 GM INH SCH ×2 (11:58→20:31)
[2016-08-23] MEDS: PANTOPRAZOLE 40 MG VIAL IV SCH ×2 (12:21→20:31)
[2016-08-23] MEDS: ASPIRIN EC 81 MG TABLET PO SCH (12:24)
[2016-08-23] MEDS: SACUBITRIL/VALSARTAN 49-51 MG TABLET PO SCH ×2 (12:46→20:30)
[2016-08-23] MEDS: BISOPROLOL 5 MG TABLET PO SCH (12:46)
[2016-08-23] MEDS: FUROSEMIDE 40 MG/4 ML VIAL IV SCH ×2 (12:46→15:53)
[2016-08-23] MEDS: POTASSIUM CHLORIDE 20 MEQ TABLET PO SCH ×2 (13:32→13:57)
--- NOTE | 2016-08-23 13:37 | Cardiology Progress Note ---
Manuel Finn Rachel, RN, am scribing for, and in the presence of, Desmond Trimble MD 13:37. Assessment and Plan (1) NICM (nonischemic cardiomyopathy) Status: Chronic Assessment and plan: Ejection fraction of 15%. Patient has good heart failure medication regimen with Entresto and beta-genoveva. We will continue current plan of care with dobutamine drip. 08/23/16: Patient is better on 7.5 mics per kilo of dobutamine. He is not having significant symptoms relative to orthopnea or PND. His urine output has picked up. He is mildly hypotensive in his urine output will be watched. We' re going to continue his current medications. His meds. I have discussed in detail the particulars of this case and I have examined the patient and reviewed the patient's chart both current and old. I was directly involved in the patient's evaluation and management and I completely agree with Viktoriya Jackson regarding this patient's evaluation and treatment plan. Current Visit: Yes (2) Congestive heart failure Status: Chronic Assessment and plan: She has improved clinically today. We will continue current plan of care with Lasix and dobutamine drip. Current Visit: Yes (3) Gastroparesis Status: Acute Assessment and plan: Management per GI Current Visit: Yes (4) T2DM (type 2 diabetes mellitus) Status: Chronic Assessment and plan: Hemoglobin A1c is noted to be 6.6. Continue current plan of care. Current Visit: Yes (5) GERD (gastroesophageal reflux disease) Status: Acute Assessment and plan: Continue PPI. Current Visit: Yes (6) Gastritis Status: Acute Current Visit: Yes Cardiology - PN: Subj Interval history: Patient was seen on telemetry. Clinically, he has greatly improved after initiation of dobutamine drip yesterday. Dobutamine is currently infusing at 7.5 mcg/kg/min. He reports that his shortness of breath is much better today. He denies chest pain and palpitations. He is currently being diuresed with Lasix 80 mg IV twice daily. According to the I's and O's she has lost 1 pound overnight and is diuresing well with Lasix. He is status post EGD this morning. GERD, gastritis and duodenitis were noted. GI recommends to avoid nonsteroidals and continue PPI. Dr. Page saw patient yesterday. He recommends continuing with present CPAP therapy and is scheduling him for follow -up in the sleep clinic after discharge. Vital signs are stable today. His potassium is noted to be 3.3 today, patient takes potassium 40 mEq daily. Exam (Progress Note) - Constitutional Vitals: Period Temp Pulse Resp BP Sys/Moran Pulse Ox Last 24 Hr 96.4 F-98.5 F 40-84 15-21 97-135/59-086 95-99 General appearance: no acute distress, over weight - Head Head exam: Present: normal inspection, normocephalic, atraumatic - Respiratory Respiratory exam: Present: clear to auscultation bilaterally. Absent: accessory muscle use, chest wall tenderness, rales, rhonchi, stridor, wheezes - Cardiovascular Cardiovascular exam: Present: regular rate and rhythm. Absent: bradycardia, carotid bruit, gallop, rubs, tachycardia - GI/Abdominal GI/Abdominal exam: Present: normal bowel sounds, tenderness. Absent: distended , firm, mass, soft - Extremities Exam Extremities exam: Present: normal inspection, normal capillary refill, edema (1 + bilateral lower extremity edema), other (Normal lower extremity pulses). Absent: calf tenderness - Neurological Exam Neurological exam: Present: alert, oriented X3, normal gait - Psychiatric Psychiatric exam: Present: normal affect, normal mood. Absent: agitated, anxious, depressed - Skin Skin exam: Present: normal color, warm, dry. Absent: cyanosis Result/EKG - Labs CBC & BMP: 08/23/16 05:49 08/23/16 05:49 Lab Results: I have reviewed the past 24 hour labs Labs: Laboratory Results - last 24 hr 08/22/16 08/22/16 08/23/16 16:12 19:34 05:49 WBC 6.2 D RBC 4.33 Hgb 12.8 L Hct 38.8 L MCV 89.6 MCH 30 MCHC 33.0 RDW 15.1 Plt Count 170 D MPV 11.9 Neut % (Auto) 57.0 Lymph % (Auto) 31.6 [place] % (Auto) 9.0 Eos % (Auto) 1.4 Baso % (Auto) 0.8 Neut # (Auto) 3.5 Lymph # (Auto) 2.0 [place] # (Auto) 0.6 Eos # (Auto) 0.1 Baso # (Auto) 0.1 Immature Gran % 0.2 Nucleated RBC % 0.0 Immature Gran # 0.01 Nucleated RBCs # 0.00 Sodium Potassium Chloride Carbon Dioxide Anion Gap BUN Creatinine GFR Calculation BUN/Creatinine Ratio Glucose POC Glucose 117 H 110 H Calculated Osmolality Calcium Magnesium 08/23/16 08/23/16 05:49 07:09 WBC RBC Hgb Hct MCV MCH MCHC RDW Plt Count MPV Neut % (Auto) Lymph % (Auto) [place] % (Auto) Eos % (Auto) Baso % (Auto) Neut # (Auto) Lymph # (Auto) [place] # (Auto) Eos # (Auto) Baso # (Auto) Immature Gran % Nucleated RBC % Immature Gran # Nucleated RBCs # Sodium 145 Potassium 3.3 L Chloride 106 Carbon Dioxide 30 Anion Gap 12.3 BUN 17 Creatinine 1.00 GFR Calculation 122 BUN/Creatinine Ratio 17.00 Glucose 99 POC Glucose 102 Calculated Osmolality 289.7 Calcium 8.7 Magnesium 1.9 Specialty Discharge - Follow Up or Referrals IAtilio Wesley, MD, personally performed the services described in this documentation, ascribed by Viktoriya Jackson RN in my presence, and it is both accurate and complete 337 .
--- NOTE | 2016-08-23 14:50 | Physician Query Form ---
CLICK EDIT DOCUMENT TO SELECT QUERY ANSWER --> OK --> SIGN Michelle Reza RN, CCDS Certified Clinical Hydraulic Jack Adjuster W) [phone] (f) [phone] [email or web address]: Make your selection(s) from the choices in EACH section by typing an "x" and enter comments in the comment section. Please use your independent medical judgment in providing your response. This request does not imply that any particular answer is desired or expected. CLINICAL INDICATORS: (Providers should not edit this section) The medical record indicates that the patient was admitted with Gastroparesis, CHF, "nonischemic cardiomyopathy", "ejection fraction declining, now 15%", BNP of 1600#, and the patient was treated with Lasix/ Dobutamine. Please provide further specificity regarding CHF. ACUITY: ( ) Acute ( ) Chronic (x ) Acute on Chronic ( ) Clinically unable to determine TYPE: (x ) Systolic ( ) Diastolic ( ) Combined Systolic/Diastolic ( ) Other, please specify: ( ) Clinically unable to determine ( ) The patient does NOT have CHF COMMENTS: Use of terms such as suspected, likely, or probable (associated with a specific diagnosis that is being evaluated, monitored, or treated as if it exists) are acceptable and can be restated in the discharge summary if not ruled out. MTDD
[2016-08-24 05:16] LABS: Basophils % 0.6 % (0.0-0.8); Eosinophils # 0.1 10*3/uL (0.0-0.87); Eosinophils % 1.9 % (0.00-10.9); Hematocrit 41.3 VOL% (42.0-52.0); Hemoglobin 13.5 GM/DL (14.0-18.0); Immature Granulocytes % 0.4 %; Immature Granulocytes Absolute 0.03 #; Lymphocytes # 2.1 10*3/uL (1.4-4.0); Lymphocytes % 30.4 % (21.2-54.2); Mean Corpuscular HGB Conc 32.7 GM/DL (32-36); Mean Corpuscular Hemoglobin 30 PG (27-34); Mean Corpuscular Volume 90.4 FL (87-102); Mean Platelet Volume 12.1 FL (9.6-12.0); Monocytes # 0.7 10*3/uL (0.11-0.8); Monocytes % 10.5 % (1.7-12.7); Neutrophils # 3.9 10*3/uL (1.4-7.4); Neutrophils % 56.2 % (38.7-73.9); Platelet Count 189 T/CUMM (130-400); Red Blood Count 4.57 MC/CUMM (3.8-5.5); Red Cell Distribution Width 15.3 % (9.3-17.3); White Blood Count 6.9 T/CUMM (4-12)
[2016-08-24 05:58] LABS: Calcium 8.5 MG/DL (8.5-10.1); Magnesium 1.9 MG/DL (1.8-2.4); Osmolality,Calculated 291.4 MOS/KG (273-304); Potassium 3.2 MMOL/L (3.5-5.1)
[2016-08-24] MEDS: DOBUTamine 500 MG/250 ML PREMIX IV SCH ×2 (08:56→17:42)
--- NOTE | 2016-08-24 09:15 | Gastrointestinal Progress Note ---
<RolyHarini shell Bhavani - Last Filed: 08/24/16 09:13> Assessment and Plan (1) Nausea and vomiting Status: Acute Assessment and plan: 08/24-Nausea, vomiting resolved at present time. EGD findings noted. Tolerating diet at present time. Plan and addendum to follow by Dr Madrid. 08/22-2-3 week history of nausea, vomiting with eating. No coffee ground/ hematemesis. Mid abd pain with eating, resolved with vomiting. Diet controlled DM. No prior endoscopy. Plan and addendum to follow by Dr Madrid. Current Visit: Yes Gastroenterology - PN: Subj Interval history: CC: Nausea, vomiting Pt is seen, awake and alert. States he is feeling better today. He states his nausea and vomiting has resolved at this time. Abdomen is soft, nontender. EGD findings noted with GERD, gastritis, duodenitis. He is tolerating his diet at present time. He continues on Dobutamine at this time. ROS: Denies SOB or chest pain Exam (Progress Note) - Constitutional Vitals: Period Temp Pulse Resp BP Sys/Moran Pulse Ox Last 24 Hr 97.1 F-98.3 F 62-88 15-21 98-141/58-086 95-99 General appearance: no acute distress, over weight - Head Head exam: Present: normal inspection, normocephalic - Eye Eye exam: Present: other (lids and conjunctiva unremarkable). Absent: scleral icterus - ENT ENT exam: Present: normal exam, normal oropharynx - Neck Neck exam: Present: normal inspection - Respiratory Respiratory exam: Present: clear to auscultation bilaterally. Absent: rales, rhonchi, wheezes - Cardiovascular Cardiovascular exam: Present: regular rate and rhythm. Absent: diastolic murmur , JVD, systolic murmur - GI/Abdominal GI/Abdominal exam: Present: normal bowel sounds, soft. Absent: ascites, distended, mass, organomegaly, tenderness - Extremities Exam Extremities exam: Present: normal inspection, full ROM - Back Exam Back exam: Present: normal inspection - Neurological Exam Neurological exam: Present: alert, oriented X3 - Psychiatric Psychiatric exam: Present: normal affect, normal mood - Skin Skin exam: Present: normal color, warm, dry Results - Labs CBC & BMP: 08/24/16 04:51 08/24/16 04:51 Lab Results: I have reviewed the past 24 hour labs Specialty Discharge - Follow Up or Referrals <Ryan Madrid - Last Filed: 08/24/16 18:20> Exam (Progress Note) - Constitutional Vitals: Period Temp Pulse Resp BP Sys/Moran Pulse Ox Last 24 Hr 97.1 F-98.6 F 62-88 16-20 111-141/58-88 97-99 Results - Labs CBC & BMP: 08/24/16 04:51 08/24/16 04:51
[2016-08-24] MEDS: BISOPROLOL 5 MG TABLET PO SCH (09:22)
[2016-08-24] MEDS: ASPIRIN EC 81 MG TABLET PO SCH (09:22)
[2016-08-24] MEDS: POTASSIUM CHLORIDE 20 MEQ TABLET PO SCH (09:22)
[2016-08-24] MEDS: SACUBITRIL/VALSARTAN 49-51 MG TABLET PO SCH ×2 (09:23→21:00)
[2016-08-24] MEDS: FUROSEMIDE 40 MG/4 ML VIAL IV SCH ×2 (09:27→15:53)
[2016-08-24] MEDS: PANTOPRAZOLE 40 MG VIAL IV SCH ×2 (09:27→21:02)
[2016-08-24] MEDS: BUDESONIDE/FORMOTEROL 160-4.5 INHALER 6 GM INH SCH ×2 (09:29→21:04)
[2016-08-24] MEDS ORDERED: POTASSIUM CHLORIDE RIDER 10 MEQ in PREMIX 1 EACH IV PRN (09:58)
[2016-08-24] MEDS: POTASSIUM CHLORIDE 20 MEQ TABLET PO PRN ×3 (11:49→15:53)
--- NOTE | 2016-08-24 14:29 | Cardiology Progress Note ---
Manuel Finn Rachel, RN, am scribing for, and in the presence of, Desmond Trimble MD 14:28. Assessment and Plan (1) NICM (nonischemic cardiomyopathy) Status: Chronic Assessment and plan: Ejection fraction of 15%. Patient has good heart failure medication regimen with Entresto and beta-genoveva. Patient is better on 7.5 mics per kilo of dobutamine. His symptoms have improved however he continues to complain of orthopnea and trouble sleeping. His blood pressure is stable with systolic blood pressure staying around 120. He is diuresing well with Lasix 80 mg IV twice daily and according to his I's and O's, he has lost 5 pounds since admission. He is status post EGD which revealed gastritis, GERD and duodenitis. PPI has been continued. He was hypokalemic this morning, IV potassium replacement protocol as ordered. He has progressed his cardiomyopathy and had a long discussion with the son related to what he can anticipate after an evaluation at [facility] in the heart failure clinic. They have lots of questions about alternative therapies and we discussed left ventricular assist devices and ultimately heart transplantation all of which were very distant into the future and are not required currently. We will make those arrangements and try to see if we can get him set for evaluation there. I have discussed in detail the particulars of this case and I have examined the patient and reviewed the patient's chart both current and old. I was directly involved in the patient's evaluation and management and I completely agree with Viktoriya Jackson regarding this patient's evaluation and treatment plan. Current Visit: Yes (2) Congestive heart failure Status: Chronic Assessment and plan: This is clinically stable today. Current Visit: Yes (3) Gastroparesis Status: Acute Assessment and plan: Management per GI Current Visit: Yes (4) T2DM (type 2 diabetes mellitus) Status: Chronic Assessment and plan: Hemoglobin A1c is noted to be 6.6. Continue current plan of care. Current Visit: Yes (5) GERD (gastroesophageal reflux disease) Status: Acute Assessment and plan: Continue PPI. Current Visit: Yes (6) Gastritis Status: Acute Current Visit: Yes (7) Hypokalemia Status: Acute Assessment and plan: IV potassium replacement protocol initiated. Current Visit: Yes Cardiology - PN: Subj Interval history: Patient was seen on telemetry. Dobutamine is infusing at 7.5 mcg/kg/min. His symptoms have improved, however he continues to complain of orthopnea and trouble sleeping. He is currently not requiring any oxygen and is without distress. He is currently being diuresed with 80 mg of Lasix IV twice daily. He is having good urine output with this. According to his I's and O's he is down 5 pounds since admission. Patient is status post EGD yesterday. GERD, gastritis and duodenitis were all negative. GI recommended to avoid nonsteroidals and continue PPI. Dr. Page has also seen the patient and recommends continuing the CPAP therapy and has scheduled a follow-up appointment in the sleep clinic after discharge. Vital signs are stable this morning. His potassium was noted to be 3.2, IV potassium replacement protocol has been initiated. He has been sinus rhythm with heart rates in the 60s with occasional PVCs noted. Exam (Progress Note) - Constitutional Vitals: Period Temp Pulse Resp BP Sys/Moran Pulse Ox Last 24 Hr 97.1 F-98.3 F 62-88 15-21 98-141/58-086 96-99 General appearance: no acute distress, over weight - Head Head exam: Present: normal inspection, normocephalic, atraumatic - Respiratory Respiratory exam: Present: clear to auscultation bilaterally. Absent: accessory muscle use, chest wall tenderness, rales, rhonchi, stridor, wheezes - Cardiovascular Cardiovascular exam: Present: regular rate and rhythm. Absent: carotid bruit, gallop, rubs, tachycardia - GI/Abdominal GI/Abdominal exam: Present: normal bowel sounds, soft. Absent: distended, firm , mass, tenderness - Extremities Exam Extremities exam: Present: normal capillary refill, edema (2+ bilateral lower extremity edema), other (Normal lower extremity pulses). Absent: calf tenderness - Neurological Exam Neurological exam: Present: alert, oriented X3, normal gait - Psychiatric Psychiatric exam: Present: normal affect, normal mood. Absent: agitated, anxious, depressed - Skin Skin exam: Present: normal color, warm, dry. Absent: cyanosis Result/EKG - Labs CBC & BMP: 08/24/16 04:51 08/24/16 04:51 Lab Results: I have reviewed the past 24 hour labs Labs: Laboratory Results - last 24 hr 08/24/16 08/24/16 04:51 04:51 WBC 6.9 RBC 4.57 Hgb 13.5 L Hct 41.3 L MCV 90.4 MCH 30 MCHC 32.7 RDW 15.3 Plt Count 189 MPV 12.1 H Neut % (Auto) 56.2 Lymph % (Auto) 30.4 [place] % (Auto) 10.5 Eos % (Auto) 1.9 Baso % (Auto) 0.6 Neut # (Auto) 3.9 Lymph # (Auto) 2.1 [place] # (Auto) 0.7 Eos # (Auto) 0.1 Baso # (Auto) 0.0 Immature Gran % 0.4 Nucleated RBC % 0.0 Immature Gran # 0.03 Nucleated RBCs # 0.00 Sodium 147 H Potassium 3.2 L Chloride 107 Carbon Dioxide 25 Anion Gap 18.2 H BUN 11 Creatinine 0.80 GFR Calculation 145 BUN/Creatinine Ratio 13.00 Glucose 113 H Calculated Osmolality 291.4 Calcium 8.5 Magnesium 1.9 Specialty Discharge - Follow Up or Referrals IAtilio Wesley, MD, personally performed the services described in this documentation, ascribed by Viktoriya Jackson, RN in my presence, and it is both accurate and complete [id number] .
[2016-08-24] MEDS ORDERED: ACETAMINOPHEN 500 MG TABLET PO PRN (20:15)
[2016-08-25] MEDS: DOBUTamine 500 MG/250 ML PREMIX IV SCH ×3 (02:28→15:07)
[2016-08-25] MEDS: FUROSEMIDE 40 MG/4 ML VIAL IV SCH ×2 (09:19→16:59)
[2016-08-25] MEDS: PANTOPRAZOLE 40 MG VIAL IV SCH ×2 (09:19→21:26)
[2016-08-25] MEDS: POTASSIUM CHLORIDE 20 MEQ TABLET PO SCH (09:20)
[2016-08-25] MEDS: BISOPROLOL 5 MG TABLET PO SCH (09:20)
[2016-08-25] MEDS: SACUBITRIL/VALSARTAN 49-51 MG TABLET PO SCH ×2 (09:20→21:25)
[2016-08-25] MEDS: ASPIRIN EC 81 MG TABLET PO SCH (09:20)
[2016-08-25] MEDS: BUDESONIDE/FORMOTEROL 160-4.5 INHALER 6 GM INH SCH ×2 (09:31→22:21)
[2016-08-25] MEDS: POLYETHYLENE GLYCOL POWDER 17 GM PACK PO SCH (11:02)
--- NOTE | 2016-08-25 14:24 | Cardiology Progress Note ---
Manuel Finn Rachel, RN, am scribing for, and in the presence of, Desmond Trimble MD 14:24. Assessment and Plan (1) NICM (nonischemic cardiomyopathy) Status: Chronic Assessment and plan: Ejection fraction of 15%. Patient has good heart failure medication regimen with Entresto and beta-genoveva. Patient is better on 7.5 mics per kilo of dobutamine. Will titrate this off today. His symptoms have improved. He is diuresing well with Lasix 80 mg IV twice daily and according to his I's and O's , he has lost 7 pounds since admission. Trying to get patient appointment at [facility] in the heart failure clinic. Had a long conversation with the patient and his son yesterday about his condition and what he can anticipate after an evaluation at [facility]. They have lots of questions about alternative therapies and we discussed left ventricular assist devices and ultimately heart transplantation all of which were very distant into the future and are not required currently. We will make those arrangements and try to see if we can get him set for evaluation there. Current Visit: Yes (2) Congestive heart failure Status: Chronic Assessment and plan: This is clinically stable today. Current Visit: Yes (3) Gastroparesis Status: Acute Assessment and plan: Management per GI Current Visit: Yes (4) T2DM (type 2 diabetes mellitus) Status: Chronic Assessment and plan: Hemoglobin A1c is noted to be 6.6. Continue current plan of care. Current Visit: Yes (5) GERD (gastroesophageal reflux disease) Status: Acute Assessment and plan: Continue PPI. Current Visit: Yes (6) Gastritis Status: Acute Assessment and plan: Continue PPI. Current Visit: Yes (7) Hypokalemia Status: Acute Assessment and plan: Potassium of 4.2 noted today after being replaced with IV potassium yesterday. Current Visit: Yes (8) Constipation Status: Acute Assessment and plan: MiraLAX was initiated. Current Visit: Yes Cardiology - PN: Subj Interval history: She was seen on telemetry. Patient is sitting up in chair in no acute distress. He is not requiring any oxygen. Dobutamine is infusing at 7.5 micrograms per kilogram per minute. Will start to titrate this off today. His symptoms have greatly improved. He did well overnight and is without all cardiac complaints this morning. Potassium is stable this morning at 4.2 after being replaced yesterday. He is being diuresed with 80 mg of IV Lasix twice daily. According to I's and O's, he is diuresing well and is down 7 pounds since admission. Patient complains of constipation. MiraLAX has been initiated. Patient is sinus rhythm with heart rates in the 70s with multiple PACs and PVCs noted. It appears that patient had a several beat run of wide complex tachycardia overnight. Patient was asymptomatic and has had no further arrhythmias. Patient is stable. He has had some nonsustained ventricular tachycardia which is not uncommon for him. He is I think reaching maximal hospital benefit and likely can be discharged tomorrow once he comes off his dobutamine. We will review his medications and then have him transferred to [facility] for heart failure workup there. I have discussed in detail the particulars of this case and I have examined the patient and reviewed the patient's chart both current and old. I was directly involved in the patient's evaluation and management and I completely agree with Viktoriya Jackson RN regarding this patient's evaluation and treatment plan. Exam (Progress Note) - Constitutional Vitals: Period Temp Pulse Resp BP Sys/Moran Pulse Ox Last 24 Hr 97.5 F-98.6 F 59-83 18-20 98-115/57-87 92-99 - Other Additional findings: - Head Head exam: Present: normal inspection, normocephalic, atraumatic - Respiratory Respiratory exam: Present: clear to auscultation bilaterally. Absent: accessory muscle use, chest wall tenderness, rales, rhonchi, stridor, wheezes - Cardiovascular Cardiovascular exam: Present: regular rate and rhythm. Absent: carotid bruit, gallop, rubs, tachycardia - GI/Abdominal GI/Abdominal exam: Present: normal bowel sounds, soft. Absent: distended, firm , mass, tenderness - Extremities Exam Extremities exam: Present: normal capillary refill, edema (2+ bilateral lower extremity edema), other (Normal lower extremity pulses). Absent: calf tenderness - Neurological Exam Neurological exam: Present: alert, oriented X3, normal gait - Psychiatric Psychiatric exam: Present: normal affect, normal mood. Absent: agitated, anxious, depressed - Skin Skin exam: Present: normal color, warm, dry. Absent: cyanosis Result/EKG - Labs CBC & BMP: 08/24/16 04:51 08/24/16 21:52 Lab Results: I have reviewed the past 24 hour labs Labs: Laboratory Results - last 24 hr 08/24/16 21:52 Potassium 4.2 Specialty Discharge - Follow Up or Referrals I, Desmond Tribmle MD, personally performed the services described in this documentation, ascribed by Viktoriya Jackson RN in my presence, and it is both accurate and complete [id number] .
[2016-08-26 05:49] LABS: Basophils # 0.1 10*3/uL (0.0-0.2); Basophils % 0.8 % (0.0-0.8); Eosinophils # 0.2 10*3/uL (0.0-0.87); Hematocrit 42.9 VOL% (42.0-52.0); Hemoglobin 14.1 GM/DL (14.0-18.0); Immature Granulocytes % 0.3 %; Immature Granulocytes Absolute 0.02 #; Lymphocytes # 2.4 10*3/uL (1.4-4.0); Lymphocytes % 35.9 % (21.2-54.2); Mean Corpuscular HGB Conc 32.9 GM/DL (32-36); Mean Corpuscular Hemoglobin 30 PG (27-34); Mean Corpuscular Volume 90.3 FL (87-102); Mean Platelet Volume 12.3 FL (9.6-12.0); Monocytes # 0.6 10*3/uL (0.11-0.8); Monocytes % 9.2 % (1.7-12.7); Neutrophils # 3.4 10*3/uL (1.4-7.4); Neutrophils % 50.8 % (38.7-73.9); Platelet Count 191 T/CUMM (130-400); Red Blood Count 4.75 MC/CUMM (3.8-5.5); Red Cell Distribution Width 15.4 % (9.3-17.3); White Blood Count 6.6 T/CUMM (4-12)
[2016-08-26 06:21] LABS: Calcium 9.2 MG/DL (8.5-10.1); Magnesium 2.1 MG/DL (1.8-2.4); Osmolality,Calculated 288.7 MOS/KG (273-304); Potassium 3.9 MMOL/L (3.5-5.1)
[2016-08-26] MEDS: PANTOPRAZOLE 40 MG VIAL IV SCH (09:23)
[2016-08-26] MEDS: POLYETHYLENE GLYCOL POWDER 17 GM PACK PO SCH (09:24)
[2016-08-26] MEDS: FUROSEMIDE 40 MG/4 ML VIAL IV SCH (09:24)
[2016-08-26] MEDS: BISOPROLOL 5 MG TABLET PO SCH (09:26)
[2016-08-26] MEDS: ASPIRIN EC 81 MG TABLET PO SCH (09:27)
[2016-08-26] MEDS: POTASSIUM CHLORIDE 20 MEQ TABLET PO SCH (09:27)
[2016-08-26] MEDS: SACUBITRIL/VALSARTAN 49-51 MG TABLET PO SCH (09:27)
[2016-08-26] MEDS: BUDESONIDE/FORMOTEROL 160-4.5 INHALER 6 GM INH SCH (09:27)
[2016-08-26] MEDS: DOBUTamine 500 MG/250 ML PREMIX IV SCH (10:16)
--- NOTE | 2016-08-26 11:08 | Discharge Summary ---
Manuel Finn Rachel, RN, am scribing for, and in the presence of, Desmond Trimble MD 11:08. Hospital Course - Hospital Course Hospital Course: Mr. Richard is a 51 year old male, followed by Dr. Trimble. He was admitted to [facility] after presenting with shortness of breath. He has risk factors significant for diabetes, hypertension, dyslipidemia, obesity family history of premature coronary artery disease and sedentary lifestyle. He reports that he has never smoked in the past. He has a history of nonischemic cardiomyopathy, ejection fraction declining, now 15%, despite being on Entresto and BB. He also has a history of obstructive sleep apnea, anemia, paroxysmal VT and chronic systolic congestive heart failure. he has a single- chamber ICD for primary prevention. Patient presented to [facility] for further evaluation of shortness of breath, nausea and vomiting. He reports a slow worsening of orthopnea, lower extremity edema, PND and shortness of breath. He was admitted and housed on the telemetry floor for close observation. Upon admission, his BNP was noted to be 1600. Troponin was negative 3. EKG did not reveal any acute findings and was unchanged from previous EKG. He was diuresed with 80 mg of Lasix IV twice daily. His beta-genoveva was reinitiated and Entresto was increased to 49 mg - 51 mg. He also required dobutamine drip this hospitalization. This has been weaned off and patient's heart failure symptoms have greatly improved. He has diuresed well with Lasix. According to his I's and O's, he lost a total of 8 pounds during this admission. While patient was hospitalized, all of his past records were sent to [facility] heart failure clinic in order to obtain appointment. They instructed hospital staff at that time that they will contact the patient with appointment information. Patient was also evaluated by GI this admission. He underwent EGD which revealed gastritis, duodenitis and GERD. He was started on PPI twice daily and antireflux precautions encouraged. Will also avoid nonsteriodals. GI recommended Protonix twice a day for 2 months then decrease to daily. Dr. Page was also consulted this admission. He recommended to continue with present CPAP therapy at this time. He plans to follow up with him after discharge. Patient was given a [address] Trimble with CBC, BMP and magnesium. He will also be given a follow-up appointment with Dr. Pgae. [facility] heart failure clinic will be calling patient with appointment information. Patient was instructed to follow up with this if he does not hear anything from this clinic within a couple of days. Patient will have potassium drawn MondayAugust 29 at [facility] clinic due to new Aldactone prescription. Patient verbalizes that he understands discharge instructions. He also verbalized understanding of all discharge medications. He will go home on the following medications: Lasix 80 mg daily Aldactone 25 mg daily Entresto 49mg - 51mg twice daily Aspirin 81 mg daily Zebeta 5 mg p.o. daily Protonix 40 mg twice daily This patient will be scheduled as outlined above with heart failure clinic at [facility]. Hopefully we will see some improvement in his clinical status with adjustment in his minutes. We will check his potassium early next week to be certain he is tolerating the Aldactone. I have discussed in detail the particulars of this case and I have examined the patient and reviewed the patient's chart both current and old. I was directly involved in the patient's evaluation and management and I completely agree with Viktoriya Jackson RN regarding this patient's evaluation and treatment plan. - Time spent with patient Time with patient DS: Greater than 30 minutes Diagnosis - Discharge Diagnosis (1) NICM (nonischemic cardiomyopathy) Status: Chronic (2) Congestive heart failure Status: Chronic (3) Gastroparesis Status: Resolved (4) T2DM (type 2 diabetes mellitus) Status: Chronic (5) GERD (gastroesophageal reflux disease) Status: Chronic (6) Gastritis Status: Acute (7) Hypokalemia Status: Resolved (8) Constipation Status: Resolved Specialty Discharge - Follow Up or Referrals Follow up with: Debbie Page MD [Physician] - Desmond Trimble MD [Physician] - (Appointment at [facility] for Potassium check MondayAugust [address] Trimble in 2 months with BMP, Magnesium and CBC. ) Discharge Plan - Discharge Data Disposition: Disch To Home/Self Care Condition at Discharge: Stable Discharge Diet: heart healthy Activity: resume usual activities as tolerated Hygiene: no restrictions Weight Bearing at Discharge: weight bear as tolerated Driving: no restrictions Contact your physician if you experience:: fever over 101, Difficulty voiding, Redness or swelling, Nausea/Vomiting, Shortness of breath, Bleeding, pain uncontrolled by pain medications - Discharge Medications New Pantoprazole Inj [Protonix Inj] 40 mg IV BID #60 tablet Sacubitril/Valsartan [Entresto 49 mg-51 mg Tablet] 0.5 tablet PO BID #60 tablet Furosemide Tab [Lasix Tab] 80 mg PO DAILY #30 tablet Spironolactone [Aldactone] 25 mg PO DAILY #30 tablet Pantoprazole Tab [Protonix Tab] 40 mg PO BID #60 tablet Continue Budesonide/Formoterol 160-4.5 [Symbicort 160-4.5] 2 puff INH BID Aspirin [Ecotrin] 81 mg PO DAILY Bisoprolol [Zebeta] 5 mg PO DAILY Discontinued Potassium Chloride [Klor-Con M20] 20 meq PO DAILY Furosemide 40 mg PO DAILY Sacubitril/Valsartan [Entresto 24 mg-26 mg Tablet] 1 tablet PO BID - Follow Up or Referral Follow Up: Debbie Page MD [Physician] - Desmond Trimble MD [Physician] - (Appointment at [facility] for Potassium check MondayAugust [address] Trimble in 2 months with BMP, Magnesium and CBC. ) - Forms/Instructions Instructions: Heart Failure (ED), Chest Pain (ED) Exam - Constitutional Vitals: Period Temp Pulse Resp BP Sys/Moran Pulse Ox Last 24 Hr 96.7 F-98.2 F 38-73 16-20 98-113/57-78 93-99 General appearance: no acute distress, over weight - Head Head exam: Present: normal inspection, normocephalic, atraumatic - Neck Neck exam: Present: normal inspection. Absent: lymphadenopathy, tenderness, thyromegaly - Respiratory Respiratory exam: Present: clear to auscultation bilaterally. Absent: accessory muscle use, chest wall tenderness, rales, rhonchi, stridor, wheezes - Cardiovascular Cardiovascular exam: Present: regular rate and rhythm. Absent: carotid bruit, gallop, rubs - GI/Abdominal GI/Abdominal exam: Present: normal bowel sounds, soft. Absent: distended, firm , mass, tenderness - Extremities Exam Extremities exam: Present: normal inspection, normal capillary refill, other ( Normal lower extremity pulses). Absent: calf tenderness, edema - Neurological Exam Neurological exam: Present: alert, oriented X3, normal gait - Psychiatric Psychiatric exam: Present: normal affect, normal mood. Absent: agitated, anxious, depressed - Skin Skin exam: Present: normal color, warm, dry. Absent: cyanosis Discharge Results Labs on day of discharge: Labs from last 24 hours 08/26/16 08/26/16 04:38 04:38 WBC 6.6 RBC 4.75 Hgb 14.1 Hct 42.9 MCV 90.3 MCH 30 MCHC 32.9 RDW 15.4 Plt Count 191 MPV 12.3 H Neut % (Auto) 50.8 Lymph % (Auto) 35.9 [place] % (Auto) 9.2 Eos % (Auto) 3.0 Baso % (Auto) 0.8 Neut # (Auto) 3.4 Lymph # (Auto) 2.4 [place] # (Auto) 0.6 Eos # (Auto) 0.2 Baso # (Auto) 0.1 Immature Gran % 0.3 Nucleated RBC % 0.0 Immature Gran # 0.02 Nucleated RBCs # 0.00 Sodium 145 Potassium 3.9 Chloride 109 H Carbon Dioxide 27 Anion Gap 12.9 BUN 15 Creatinine 0.80 GFR Calculation 144 BUN/Creatinine Ratio 18.00 Glucose 99 Calculated Osmolality 288.7 Calcium 9.2 Magnesium 2.1 - Imaging and Cardiology Procedure: Chest x-ray: report reviewed by me DS: Provider Consults: 08/21/16 10:39 Consult to Physician [CONS] Routine Comment: [facility] [place] pt Consulting Provider: Ryan Madrid Consult to Specialist Group: Gastroenterology When should Consulting Provider be notified: Now Consult Notification Comment: TEXTED TO SOY AT 0835 08/21/16 10:52 Consult to Physician [CONS] Routine Comment: Consulting Provider: Debbie Page Consult to Specialist Group: Pulmonology When should Consulting Provider be notified: Now 08/22/16 09:13 Consult to Sleep Center [CONS] Routine Reason for Sleep Center: Sleep Center Physician Consult Comment: [facility] Expected date of discharge: 08/26/16 IAtilio Wesley, MD, personally performed the services described in this documentation, ascribed by Viktoriya Jackson RN in my presence, and it is both accurate and complete [id number] .
[2016-08-26 12:18] VITALS: BP 101/75
[2016-08-27] MEDS ORDERED: FUROSEMIDE 80 MG TABLET PO SCH (09:00)
[2016-08-27] MEDS ORDERED: SPIRONOLACTONE 25 MG TABLET PO SCH (09:00)
== END 2016-08-26 12:55 | disposition home or self-care (01) | DRG 292 ==
LOC: N.EDINP 22:21 → N.ED 22:21 → OBSVTOIN 08-21 01:05 → N.TELEN 08-21 02:11
PROVIDERS: ADMIT Internal Medicine Interventional Cardiology; ATTEND Internal Medicine Interventional Cardiology

== ENCOUNTER 2020-06-07 16:11 | Inpatient (IN) ==
[2020-06-07] MEDS ORDERED: ONDANSETRON 4 MG/2 ML VIAL IV STA ×2 (19:23→21:03)
[2020-06-07] MEDS ORDERED: SODIUM CHLORIDE 0.9% 1,000 ML IV STA (19:23)
[2020-06-07 20:18] LABS: Basophils % 0.2 % (0.0-0.8); Eosinophils # 0.1 10*3/uL (0.0-0.87); Eosinophils % 0.7 % (0.00-10.9); Hematocrit 23.2 VOL% (42.0-52.0); Hemoglobin 7.3 GM/DL (14.0-18.0); Immature Granulocytes % 0.6 %; Immature Granulocytes Absolute 0.06 #; Lymphocytes % 20.2 % (21.2-54.2); Mean Corpuscular HGB Conc 31.5 GM/DL (32-36); Mean Corpuscular Volume 87.5 FL (87-102); Mean Platelet Volume 9.8 FL (9.6-12.0); Monocytes % 7.9 % (1.7-12.7); Neutrophils % 70.4 % (38.7-73.9); Platelet Count 388 T/CUMM (130-400); Red Blood Count 2.65 MC/CUMM (3.8-5.5); Red Cell Distribution Width 12.7 % (9.3-17.3); White Blood Count 9.9 T/CUMM (4-12)
[2020-06-07 20:37] LABS: Alanine Aminotransferase 27 U/L (16-61); Albumin 3.4 G/DL (3.4-5.0); Alkaline Phosphatase 66 U/L (45-117); Aspartate Amino Transferase 15 U/L (0-37); Bilirubin,Total < 0.39 MG/DL (0.2-1.0); Blood Urea Nitrogen 13 MG/DL (7-18); Calcium 8.6 MG/DL (8.5-10.1); Estimated Glom Filtration Rate 113 ML/MIN; Glucose 172 MG/DL (74-106); Osmolality,Calculated 282.4 MOS/KG (273-304)
[2020-06-07] MEDS ORDERED: MORPHINE 4 MG/1 ML VIAL IV STA (21:03)
[2020-06-07] MEDS ORDERED: methylPREDNISolone SOD SUC 125 MG/2 ML VIAL IV STA (21:04)
[2020-06-07 21:06] LABS: Ferritin 11.1 ng/ml (26-388)
[2020-06-07] MEDS ORDERED: DEXTROSE 50% 25 GM/50 ML VIAL IV PRN (22:54)
[2020-06-07] MEDS ORDERED: GLUCAGON 1 MG VIAL IM PRN (22:54)
[2020-06-07] MEDS ORDERED: ONDANSETRON 4 MG/2 ML VIAL IV PRN (22:54)
[2020-06-07] MEDS ORDERED: SODIUM CHLORIDE 0.9% 1,000 ML IV PRN (23:00)
[2020-06-07 23:37] LABS: Basophils % 0.2 % (0.0-0.8); Eosinophils # 0.1 10*3/uL (0.0-0.87); Eosinophils % 0.7 % (0.00-10.9); Hematocrit 23.4 VOL% (42.0-52.0); Hemoglobin 7.4 GM/DL (14.0-18.0); Immature Granulocytes % 0.6 %; Immature Granulocytes Absolute 0.06 #; Mean Corpuscular HGB Conc 31.6 GM/DL (32-36); Mean Platelet Volume 10.2 FL (9.6-12.0); Monocytes % 8.2 % (1.7-12.7); NRBC # 0.02 10*3/uL; Neutrophils % 70.3 % (38.7-73.9); Platelet Count 416 T/CUMM (130-400); Red Blood Count 2.66 MC/CUMM (3.8-5.5); Red Cell Distribution Width 12.7 % (9.3-17.3); White Blood Count 9.9 T/CUMM (4-12)
[2020-06-08 00:01] LABS: Folate > 24.0 NG/ML (5.4-24.0); Vitamin B12 793 PG/ML (211-911)
[2020-06-08 00:42] LABS: Sedimentation Rate-Westergren 91 MM/HR (0-20)
[2020-06-08] MEDS ORDERED: ACETAMINOPHEN 500 MG TABLET PO PRN (02:51)
[2020-06-08] MEDS ORDERED: ALBUTEROL INHALER 18 GM INH PRN (07:00)
[2020-06-08 08:47] LABS: Hematocrit 26.4 VOL% (42.0-52.0); Hemoglobin 8.1 GM/DL (14.0-18.0); Immature Granulocytes % 0.8 %; Immature Granulocytes Absolute 0.07 #; Lymphocytes # 0.9 10*3/uL (1.4-4.0); Lymphocytes % 11.2 % (21.2-54.2); Mean Corpuscular HGB Conc 30.7 GM/DL (32-36); Mean Corpuscular Volume 88.9 FL (87-102); Monocytes % 0.6 % (1.7-12.7); Neutrophils % 87.4 % (38.7-73.9); Platelet Count 397 T/CUMM (130-400); Red Blood Count 2.97 MC/CUMM (3.8-5.5); Red Cell Distribution Width 13.1 % (9.3-17.3); White Blood Count 8.2 T/CUMM (4-12)
[2020-06-08] MEDS ORDERED: [UNRECOGNIZED DRUG - OTHER] PO SCH (09:00)
[2020-06-08] MEDS ORDERED: MAGNESIUM OXIDE AA CHELATE PO SCH (09:00)
[2020-06-08] MEDS: INSULIN REGULAR 100 UNIT/ML SUBCUT SCH ×4 (09:15→22:07)
[2020-06-08] MEDS: MYCOPHENOLATE 180 MG TABLET PO SCH ×2 (09:15→22:05)
[2020-06-08 09:17] LABS: Albumin 3.3 G/DL (3.4-5.0); Bilirubin,Total 0.6 MG/DL (0.2-1.0); Calcium 9.1 MG/DL (8.5-10.1); Ferritin 10.7 ng/ml (26-388); Osmolality,Calculated 288.3 MOS/KG (273-304); Total Protein 7.1 G/DL (6.4-8.3)
[2020-06-08] MEDS: allopurinoL 100 MG TABLET PO SCH (09:17)
[2020-06-08] MEDS: DILTIAZEM CD 180 MG CAPSULE PO SCH (09:17)
[2020-06-08] MEDS: PANTOPRAZOLE 40 MG TABLET PO SCH (09:17)
[2020-06-08] MEDS: CETIRIZINE 10 MG TABLET PO SCH (09:17)
[2020-06-08] MEDS: CITALOPRAM 40 MG TABLET PO SCH (09:17)
[2020-06-08] MEDS: ASPIRIN CHEW 81 MG TABLET PO SCH (09:17)
[2020-06-08] MEDS: MAGNESIUM OXIDE 400 MG TABLET PO SCH ×2 (09:17→22:06)
[2020-06-08] MEDS: Empagliflozin [Jardiance] 25 mg tablet PO SCH (09:30)
[2020-06-08] MEDS: methylPREDNISolone 4 MG TABLET PO SCH ×4 (11:56→22:04)
[2020-06-08] MEDS: TACROLIMUS 0.5 MG CAPSULE PO SCH ×2 (13:21→22:06)
[2020-06-08 18:29] LABS: Hematocrit 26.4 VOL% (42.0-52.0); Hemoglobin 8.2 GM/DL (14.0-18.0)
[2020-06-08] MEDS: SIMVASTATIN 10 MG TABLET PO SCH (22:05)
[2020-06-08] MEDS: LOSARTAN 50 MG TABLET PO SCH (22:06)
[2020-06-08] MEDS: ZALEPLON 5 MG CAPSULE PO SCH (22:07)
[2020-06-09 01:48] LABS: Hematocrit 22.6 VOL% (42.0-52.0); Hemoglobin 7.2 GM/DL (14.0-18.0)
[2020-06-09 02:01] LABS: Calcium 8.7 MG/DL (8.5-10.1); Osmolality,Calculated 290.4 MOS/KG (273-304)
[2020-06-09 07:17] LABS: Hematocrit 24.4 VOL% (42.0-52.0); Hemoglobin 7.6 GM/DL (14.0-18.0); Immature Granulocytes % 0.8 %; Immature Granulocytes Absolute 0.06 #; Lymphocytes # 0.9 10*3/uL (1.4-4.0); Lymphocytes % 11.8 % (21.2-54.2); Mean Corpuscular HGB Conc 31.1 GM/DL (32-36); Mean Corpuscular Volume 87.5 FL (87-102); Mean Platelet Volume 10.3 FL (9.6-12.0); Monocytes % 5.9 % (1.7-12.7); Neutrophils % 81.5 % (38.7-73.9); Platelet Count 452 T/CUMM (130-400); Red Blood Count 2.79 MC/CUMM (3.8-5.5); Red Cell Distribution Width 13.2 % (9.3-17.3); White Blood Count 7.9 T/CUMM (4-12)
[2020-06-09] MEDS: DILTIAZEM CD 180 MG CAPSULE PO SCH (08:30)
[2020-06-09] MEDS: INSULIN REGULAR 100 UNIT/ML SUBCUT SCH ×4 (08:30→20:54)
[2020-06-09] MEDS: allopurinoL 100 MG TABLET PO SCH (08:31)
[2020-06-09] MEDS: MYCOPHENOLATE 180 MG TABLET PO SCH ×2 (08:31→20:59)
[2020-06-09] MEDS: TACROLIMUS 0.5 MG CAPSULE PO SCH ×2 (08:32→20:56)
[2020-06-09] MEDS: PANTOPRAZOLE 40 MG TABLET PO SCH (08:33)
[2020-06-09] MEDS: MAGNESIUM OXIDE 400 MG TABLET PO SCH ×2 (08:33→20:55)
[2020-06-09] MEDS: CITALOPRAM 40 MG TABLET PO SCH (08:33)
[2020-06-09] MEDS: ASPIRIN CHEW 81 MG TABLET PO SCH (08:33)
[2020-06-09] MEDS: Empagliflozin [Jardiance] 25 mg tablet PO SCH (08:33)
[2020-06-09] MEDS: CETIRIZINE 10 MG TABLET PO SCH (08:33)
[2020-06-09] MEDS: methylPREDNISolone 4 MG TABLET PO SCH ×4 (09:25→20:57)
[2020-06-09 09:59] LABS: Hematocrit 23.5 VOL% (42.0-52.0); Hemoglobin 7.4 GM/DL (14.0-18.0)
[2020-06-09 12:33] LABS: Hemoglobin A1 (Alkaline) 97.3 % (96.5-98.5); Hemoglobin A2 (Alkaline) 2.7 % (1.5-3.5)
[2020-06-09 18:11] LABS: Hematocrit 24.5 VOL% (42.0-52.0); Hemoglobin 7.9 GM/DL (14.0-18.0)
[2020-06-09] MEDS: LOSARTAN 50 MG TABLET PO SCH (20:55)
[2020-06-09] MEDS: ZALEPLON 5 MG CAPSULE PO SCH (20:55)
[2020-06-09] MEDS: SIMVASTATIN 10 MG TABLET PO SCH (20:56)
[2020-06-10] MEDS ORDERED: TACROLIMUS 0.5 MG CAPSULE PO SCH ×2 (09:00→21:00)
[2020-06-10 09:20] LABS: Immature Granulocytes % 0.9 %; Immature Granulocytes Absolute 0.08 #; Lymphocytes # 1.1 10*3/uL (1.4-4.0); Lymphocytes % 12.4 % (21.2-54.2); Mean Corpuscular Volume 85.3 FL (87-102); Monocytes % 4.7 % (1.7-12.7); NRBC # 0.02 10*3/uL; Platelet Count 459 T/CUMM (130-400); Red Blood Count 2.93 MC/CUMM (3.8-5.5); Red Cell Distribution Width 13.1 % (9.3-17.3); White Blood Count 8.5 T/CUMM (4-12)
[2020-06-10] MEDS: INSULIN REGULAR 100 UNIT/ML SUBCUT SCH ×2 (09:26→12:05)
[2020-06-10] MEDS: MYCOPHENOLATE 180 MG TABLET PO SCH (09:28)
[2020-06-10] MEDS: CITALOPRAM 40 MG TABLET PO SCH (09:32)
[2020-06-10] MEDS: DILTIAZEM CD 180 MG CAPSULE PO SCH (09:32)
[2020-06-10] MEDS: ASPIRIN CHEW 81 MG TABLET PO SCH (09:32)
[2020-06-10] MEDS: CETIRIZINE 10 MG TABLET PO SCH (09:33)
[2020-06-10] MEDS: allopurinoL 100 MG TABLET PO SCH (09:33)
[2020-06-10] MEDS: PANTOPRAZOLE 40 MG TABLET PO SCH (09:33)
[2020-06-10] MEDS: MAGNESIUM OXIDE 400 MG TABLET PO SCH (09:33)
[2020-06-10] MEDS: methylPREDNISolone 4 MG TABLET PO SCH (09:38)
[2020-06-10] MEDS: Empagliflozin [Jardiance] 25 mg tablet PO SCH (09:39)
[2020-06-10 12:06] VITALS: BP 126/78
== END 2020-06-10 12:25 | disposition home or self-care (01) | DRG 812 ==
LOC: N.ED 16:11 → N.EDINP 22:54 → SUATTDRO 22:54 → N.2E 23:23 → N.3E 06-08 17:49
PROVIDERS: ADMIT Internal Medicine; ATTEND Internal Medicine